=== PATIENT | male | born 1970 | race Caucasian/White ===

== ENCOUNTER 2020-04-30 08:13 | Emergency (ER) | payer BC, SELFPAY ==
[2020-04-30] VITALS (9 sets, daily range): BP systolic 109–126; BP diastolic 68–82; PULSE 60–70; RESP 8–19; TEMP 37.1; O2SAT 96–100
--- NOTE | 2020-04-30 08:17 | ECG_ITS ---
Measurements Intervals [place] Rate: 62 P: 7 IA: 135 QRS: 12 QRSD: 101 T: 43 QT: 387 QTc: 395 Interpretive Statements SINUS RHYTHM EARLY PRECORDIAL R/S TRANSITION BORDERLINE ECG Electronically Signed On 04-30-2020 9:14:19 COMMUNITY DEVELOPMENT COORDINATOR by Jamir Copeland D.O.
[2020-04-30 08:37] LABS: Basophils Percent Auto 0.7 % (0.2-1.2); Eosinophils Absolute Auto 0.1 K/mm3 (0-0.3); Eosinophils Percent Auto 2.2 % (0-4.4); Hematocrit 46.7 % (42.0-52.0); Hemoglobin 15.6 g/dL (14.0-18.0); Immature Granulocyte Absolute 0.01 K/mm3 (0.00-0.031); Immature Granulocyte Percent A 0.2 % (0-0.5); Lymphocytes Absolute Auto 1.52 K/mm3 (0.9-3.2); Lymphocytes Percent Auto 27.7 % (18.3-44.2); Mean Corpuscular HGB Conc 33.4 g/dl (32-36); Mean Corpuscular Hemoglobin 28.6 pg (26-34); Mean Corpuscular Volume 85.5 fl (80-100); Mean Platelet Volume 8.5 fl (7.4-10.4); Monocytes Absolute Auto 0.5 K/mm3 (0.1-0.6); Monocytes Percent Auto 9.1 % (2.6-8.5); Neutrophils Absolute Auto 3.3 K/mm3 (1.3-6.7); Neutrophils Percent Auto 60.1 % (45.5-73.1); Platelet Count Result 274 k/mm3 (150-375); Red Blood Count 5.46 M/mm3 (4.6-6.20); Red Cell Distribution Width 12.4 % (11.5-14.5); White Blood Count 5.5 K/mm3 (4.5-10.0)
--- NOTE | 2020-04-30 08:42 | ED.SYNCOPE ---
HPI - Syncope General Chief Complaint: Syncope Stated Complaint: syncope Time Seen by Provider: 04/30/20 08:20 Source: patient and family Mode of arrival: ambulatory Limitations: no limitations History of Present Illness HPI narrative: THis patient is a healthy 49 year old male who presents for evaluation of a syncopal episode. He states was snowblowing this morning before work. He denies any chest pain, dizziness or shortness of breath while snow blowing. He states his hands were getting cold so he went inside to warm his hands. He reports he was developing pain to his hands and he because nauseated and lightheaded. His was able to catch him so he did not hit his head. He reports he woke up to his . He reports he feels better. He denies cardiac history or history of syncope. Related Data Home Medications Medication Instructions Recorded Confirmed aspirin [Adult Aspirin] 81 mg PO DAILY 04/30/20 cetirizine [Zyrtec] 10 mg PO DAILY 04/30/20 fluticasone propionate [Flonase] 1 spray INTRANASAL DAILY 04/30/20 Allergies Allergy/AdvReac Type Severity Reaction Status Date / Time Penicillins AdvReac Unknown NAUSEA Verified 04/30/20 08:26 Review of Systems Review of Systems: All systems reviewed & are unremarkable except as noted in HPI and below Constitutional: Constitutional: Denies chills and Denies fever(s) Cardiovascular: Cardiovascular: Denies chest pain Respiratory: Respiratory: Denies cough and Denies dyspnea Gastrointestinal: Gastrointestinal: Denies abdominal pain, Reports nausea and Denies vomiting Neurologic: Reports syncope and Denies headache(s) [facility] Past Medical History Medical History (Updated 04/30/20 @ 09:56 by Mary Nuno MD) Patient denies medical problems Surgical History Surgical History (System 01/12/20 @ 09:18 by Tiki William) History of tonsillectomy Family History Family History Father Hypertension Malignant neoplasm of prostate Mother Breast cancer Lupus Social History Social History (System 01/12/20 @ 09:18 by Tiki William) Smoking status: Never smoker Second hand tobacco smoke exposure: No Alcohol intake: current Substance use: never Substance use type: does not use Gender identity (if verbalized by the patient): Male Exam Narrative: Exam Narrative: GENERAL: Well-appearing, well-nourished, and in no acute distress. HEAD: Normocephalic, atraumatic EYES: PERRLA and EOMI, conjunctiva clear without discharge NECK: Supple, without lymphadenopathy or mass RESPIRATORY: No respiratory distress, Airway patent, Respirations non-labored, Clear to auscultation without rales, rhonchi or wheeze HEART: Regular rate and rhythm. No murmur heard. Normal peripheral pulses. ABDOMEN: Soft, nontender, nondistended, normal active bowel sounds. No masses. No rebound or guarding, No organomegaly. EXTREMITIES: No edema, normal strength with full range of motion. SKIN: Warm, dry, normal color without rash NEURO: Alert and oriented x3. CN 2-12 grossly intact. No focal deficits. PSYCH: Normal mood and affect. Course Reevaluation(s) Reevaluation #1: I explained to patient blood work is unremarkable. He feels better. EKG is unchanged and normal. He will follow up with PCP. This is likely vasovagal episode. No sob, chest pain or palpitations . PE unlikely. Date: 04/30/20 Time: 09:52 Consultations Consultation #1: I discussed case with Dr. Li and he agrees to follow up with patient regarding today's ER visit. Date: 04/30/20 Time: 09:53 Vital Signs Vital signs: Vital Signs Pulse Rate 68 04/30/20 08:20 Respiratory Rate 16 04/30/20 08:20 Blood Pressure 117/77 04/30/20 08:20 Pulse Oximetry 100 04/30/20 08:20 Temperature 98.7 F 04/30/20 08:30 Pulse Rate 70 04/30/20 10:01 Respiratory Rate 15 04/30/20 10:01 Blood Pressure 117/78
[2020-04-30 08:49] LABS: Anion Gap 5 mmol/L (8-16); Blood Urea Nitrogen 14 mg/dL (9-20); Calcium 9.2 mg/dL (8.4-10.2); Carbon Dioxide 30 mmol/L (22-30); Chloride 105 mmol/L (98-107); Estimated CRCL calculation 82 ml/min; Estimated Glomerular Filt Rate > 60; Glucose 94 mg/dL (75-110); Magnesium 1.9 mg/dL (1.6-2.3); Potassium 4.2 mmol/L (3.4-5.0); Sodium 140 mmol/L (137-145)
[2020-04-30 08:51] LABS: INR 0.9; Prothrombin Time 12.6 Seconds (11.1-14.7)
[2020-04-30 09:01] LABS: Troponin I < 0.012 ng/mL (0.000-0.034)
[2020-04-30 09:01] LABS: Add Urine Microscopic? YES; Appearance Urine Clear (Clear); Bilirubin Urine Negative (Negative); Blood Urine Negative (Negative); Color Urine Yellow (Yellow); Glucose Urine UA Negative (Negative); Ketones Urine Negative (Negative); Leukocyte Esterase Ur Negative LEU/UL (Negative); Mucus Urine Few /lpf; Nitrate Urine Negative (Negative); Protein Urine 1+ mg/dL (Negative); Specific Grav Ur 1.024 (1.001-1.035); Urobilinogen Urine Negative mg/dL (<2.0); WBC Urine 0-3 /hpf
== END 2020-04-30 10:08 | disposition home or self-care (01) ==
PROVIDERS: Emergency Provider General Practice; PCP Family Medicine
DX: R55 Syncope and collapse (principal); R94.31 Abnormal electrocardiogram [ECG] [EKG]
CPT/HCPCS: 36415; 80048; 81001; 83735; 84484; 85025; 85610; 85730; 93005; 99284

== ENCOUNTER → 2020-05-14 06:52 | Outpatient (CLI) | payer BC, SELFPAY ==
[2020-05-14 19:08] LABS: SARS-CoV-2 RNA PCR Negative
== END ==
PROVIDERS: PCP Family Medicine; Visit Provider Family Medicine
DX: Z20.822 Contact with and (suspected) exposure to COVID-19 (principal)
CPT/HCPCS: C9803; U0003; U0005

== ENCOUNTER 2020-05-26 09:23 | Observation (INO) | payer BC, SELFPAY ==
[2020-05-26] VITALS (7 sets, daily range): BP systolic 103–120; BP diastolic 58–75; PULSE 55–61; RESP 12–20; TEMP 36.3–36.6; O2SAT 97–100; BMI 28.8
--- NOTE | ~2020-05-26 | MR_ITS ---
EXAMINATION: MR MRCP wo/w con/w 3D wo ind DATE: 05/27/2020 10:47 INDICATION: Hepatitis. Right upper quadrant abdominal pain. TECHNIQUE: Magnetic resonance imaging (MRI) of the abdomen was performed without and with 18 mL Multi Krystyna intravenous contrast. Sequences included coronal T2-weighted FS FSE, coronal T2-weighted FSE, a xial T1-weighted LAVA, coronal FS FIESTA, axial dual-echo T1-weighted SPGR, coronal lava-FLEX, sagitt al T2-weighted FSE, axial T2-weighted FSE, and axial DWI. Thick-slab T2-weighted FSE images were obta ined for magnetic resonance cholangiopancreatography (MRCP). Maximum intensity projection 3-D reconst ructions of the volumetric data were created by the technologist. Postcontrast sequences included cor onal LAVA-flex and time course of axial T1-weighted LAVA. COMPARISON: Ultrasound 05/26/2020 FINDINGS: ABDOMEN MRI: There are cysts in the liver measuring up to 6 mm. There are gallstones in the gallbladd er, which is normal in size. The spleen, pancreas, adrenal glands, and left kidney are normal. There is a 4 mm cyst in right kidney. There are no dilated loops of bowel. There are no pathologically enla rged lymph nodes. There is no free intraperitoneal fluid. ABDOMEN MRCP: The common duct is normal and measures 6 mm. No choledocholithiasis. IMPRESSION: 1. Cholelithiasis. No evidence of acute cholecystitis. Reviewed, dictated and finalized at location A.
--- NOTE | ~2020-05-26 | US_ITS ---
EXAMINATION: US abdomen limited DATE: 05/26/2020 10:29 INDICATION: Epigastric and right upper quadrant abdominal pain. TECHNIQUE: Multiple grayscale and Doppler ultrasound images of the abdomen were obtained. COMPARISON: CT abdomen and pelvis 06/11/2010 FINDINGS: The visualized portions of the head and body of the pancreas are normal. The liver is mc l without focal lesion. No liver surface nodularity. There is normal flow in main portal vein. The ga llstones in the gallbladder, which is normal in size. No gallbladder wall thickening or sonographic M urphy sign. The common duct is normal and measures 6 mm. IMPRESSION: 1. Cholelithiasis. No evidence of acute cholecystitis. Reviewed, dictated and finalized at location A.
[2020-05-26 09:45] LABS: Basophils Percent Auto 0.8 % (0.2-1.2); Eosinophils Absolute Auto 0.1 K/mm3 (0-0.3); Eosinophils Percent Auto 1.4 % (0-4.4); Hematocrit 44.4 % (42.0-52.0); Hemoglobin 14.4 g/dL (14.0-18.0); Immature Granulocyte Absolute 0.02 K/mm3 (0.00-0.031); Immature Granulocyte Percent A 0.4 % (0-0.5); Lymphocytes Percent Auto 15.8 % (18.3-44.2); Mean Corpuscular HGB Conc 32.4 g/dl (32-36); Mean Corpuscular Hemoglobin 27.9 pg (26-34); Mean Platelet Volume 8.8 fl (7.4-10.4); Monocytes Absolute Auto 0.5 K/mm3 (0.1-0.6); Monocytes Percent Auto 8.9 % (2.6-8.5); Neutrophils Absolute Auto 3.7 K/mm3 (1.3-6.7); Neutrophils Percent Auto 72.7 % (45.5-73.1); Platelet Count Result 285 k/mm3 (150-375); Red Blood Count 5.16 M/mm3 (4.6-6.20); Red Cell Distribution Width 12.6 % (11.5-14.5); White Blood Count 5.1 K/mm3 (4.5-10.0)
[2020-05-26 09:58] LABS: Albumin Level 4.3 g/dL (3.5-5.1); Alkaline Phosphatase 95 U/L (38-126); Anion Gap 5 mmol/L (8-16); Bilirubin,Total 2.3 mg/dL (0.2-1.3); Blood Urea Nitrogen 11 mg/dL (9-20); Calcium 9.3 mg/dL (8.4-10.2); Carbon Dioxide 31 mmol/L (22-30); Chloride 104 mmol/L (98-107); Estimated CRCL calculation 91 ml/min; Estimated Glomerular Filt Rate > 60; Glucose 103 mg/dL (75-110); Lipase 146 U/L (23-300); Potassium 4.1 mmol/L (3.4-5.0); Sodium 140 mmol/L (137-145)
[2020-05-26 10:01] LABS: Add Urine Microscopic? YES; Appearance Urine Clear (Clear); Bacteria Urine Trace /hpf; Bilirubin Urine Negative (Negative); Blood Urine Negative (Negative); Color Urine Yellow (Yellow); Glucose Urine UA Negative (Negative); Ketones Urine Negative (Negative); Leukocyte Esterase Ur Negative LEU/UL (Negative); Nitrate Urine Negative (Negative); Protein Urine 1+ mg/dL (Negative); RBC Urine 0-2 /hpf (0-2); Specific Grav Ur 1.019 (1.001-1.035); WBC Urine 0-3 /hpf
[2020-05-26] MEDS: ONDANSETRON INJ 4 MG/2 ML VIAL IV PUSH (10:03)
[2020-05-26] MEDS: MORPHINE SULFATE (*CRX) 4 MG/ML INJ IV PUSH (10:03)
[2020-05-26 10:04] LABS: Alanine Aminotransferase 1043 U/L (4-50); Aspartate Amino Transferase 1197 U/L (17-59)
[2020-05-26] MEDS: SODIUM CHLORIDE 0.9% IV 1,000 ML 150 ML IV CONT (10:04)
[2020-05-26] MEDS: PANTOPRAZOLE SODIUM IV 40 MG VIAL IV PUSH (10:04)
--- NOTE | 2020-05-26 12:21 | ED.ABDPAIN ---
HPI - Abdominal Pain General Chief Complaint: Abdominal Pain Stated Complaint: abdominal pain Time Seen by Provider: 05/26/20 09:35 Source: patient Mode of arrival: ambulatory Limitations: no limitations History of Present Illness HPI narrative: 49-year-old with no major medical problems here with complaints of mid epigastric pain since yesterday got worse this morning.. He denies any fever or chills no history of nausea or vomiting. No recent travel. Denies alcohol use. MD elicited complaint: abdominal pain Pertinent past history: none Onset (ago): day(s) (1) Pain Consistency: constant Location: epigastric Severity: moderate Quality: aching Radiation: epigastric Migration to: RUQ Exacerbating factors: nothing Relieving factors: nothing Associated symptoms: denies other symptoms Related Data Home Medications Medication Instructions Recorded Confirmed aspirin [Adult Aspirin] 81 mg PO DAILY 04/30/20 05/01/20 cetirizine [Zyrtec] 10 mg PO DAILY 04/30/20 05/01/20 fluticasone propionate [Flonase] 1 spray INTRANASAL DAILY 04/30/20 05/01/20 Allergies Allergy/AdvReac Type Severity Reaction Status Date / Time Penicillins AdvReac Unknown NAUSEA Verified 05/26/20 09:41 Review of Systems Review of Systems: All systems reviewed & are unremarkable except as noted in HPI and below Constitutional: Constitutional: Reports no additional constitutional complaints Eyes: Eyes: Reports no additional eye complaints ENT: Reports system reviewed and no additional complaints, except as documented Cardiovascular: Cardiovascular: Reports no additional cardiovascular complaints Respiratory: Respiratory: Reports no additional respiratory complaints Gastrointestinal: Gastrointestinal: Reports as per HPI Musculoskeletal: Musculoskeletal: Reports no additional musculoskeletal complaints Neurologic: Reports system reviewed and no additional complaints, except as documented [facility] Past Medical History Medical History Patient denies medical problems Surgical History Surgical History History of tonsillectomy Family History Family History Father Hypertension Malignant neoplasm of prostate Mother Breast cancer Lupus Father Family history of diabetes mellitus in first degree relative Hypertension Malignant neoplasm of prostate Mother Family history of malignant neoplasm of breast in first degree relative Family history of lupus erythematosus Father Family history of diabetes mellitus in first degree relative Other Family history of allergic disorder Social History Social History Smoking status: Never smoker Second hand tobacco smoke exposure: No Alcohol intake: current Substance use: never Substance use type: does not use Gender identity (if verbalized by the patient): Male Exam Narrative: Exam Narrative: GENERAL: Well-appearing, well-nourished, and in no acute distress,anxious HEAD: Normocephalic, atraumatic. EYES: PERRLA and EOMI.. NECK: Supple. CHEST: Clear to auscultation. No respiratory distress. HEART: Regular rate and rhythm. No murmur heard. Normal peripheral pulses. ABDOMEN: Soft, tender in the epigastric and in the RT upper quadrant, nondistended, normal active bowel sounds. EXTREMITIES: Normal range of motion. No edema. SKIN: Warm, dry, no rash. NEURO: No focal deficits. Alert and oriented x3. PSYCH: Normal mood and affect. Course Course Emergency Course: Pain has much subsided after morphine I did give him some Zofran for nausea. Meanwhile obtain his lab work which shows elevated transaminases. Gallbladder ultrasound showed cholelithiasis but no evidence of cholecystitis. I discussed with Dr. Elliott recommended MRCP in the morning. Will admit to Dr. Wolff who accep
--- NOTE | 2020-05-26 13:00 | ADMGEN ---
This patient, Shadi Croft, was admitted to Medical Room 340-01. Patient/family oriented to hospital policies and general routines including ID bracelet, bed and alarms, visiting hours, pain management, procedures, bathroom and other care routines, personal items, smoking policy, room service/diet, and visiting hours. Information on how to activate the Rapid Response Team has been discussed. Patient/Family are encouraged to report perceived risks to care and to ask questions if they do not understand what they are told or what they should do.
[2020-05-26 13:04] LABS: Hepatitis B Surface Antigen Negative (Negative)
[2020-05-26 13:10] LABS: HAV RESULT Negative (Negative); Hepatitis B Core IgM Result Negative (Negative)
[2020-05-26] MEDS: SODIUM CHLORIDE 0.9% IV 1,000 ML 125 ML IV CONT ×2 (13:11→21:21)
[2020-05-26 13:22] LABS: Hepatitis C Virus Antibody Negative (Negative)
--- NOTE | 2020-05-26 15:29 | PM.IMHP ---
H&P: HPI History of Present Illness Date/Time: 05/26/20 15:29 Chief Complaint: epigastric abdominal pain Narrative: 49-year-old gentleman was in his usual state good state of health until several weeks ago when he had an episode of aching epigastric fullness after eating supper. It never worsened and by morning had completely resolved. He had no issues until May 25. He was eating and drinking a relatively healthy diet trying to lose some weight but had not had any recent rapid weight gain or loss. After the evening male May 25 he had epigastric fullness with an aching sensation. It did not radiate. It was slightly to the right of midline. A gradually intensified and kept him awake most of the night. By morning it was 7/10 intensity. He decided to proceed to the emergency room by car. In the emergency department he received 1 injection intravenously morphine 4 mg. His pain resolved and has not recurred. He denied change in urine or stool. Denied nausea or vomiting. Denied melena or hematochezia or hematuria. He denied fevers chills or sweats. Review of Systems Review of Systems: All systems reviewed & are unremarkable except as noted in HPI and below PMFSH Past Medical History Medical History Patient denies medical problems Surgical History Surgical History History of tonsillectomy Family History Family History Father Malignant neoplasm of prostate Hypertension Heart failure Mother Lupus Breast cancer Father Malignant neoplasm of prostate Family history of diabetes mellitus in first degree relative Hypertension Mother Family history of malignant neoplasm of breast in first degree relative Family history of lupus erythematosus Father Family history of diabetes mellitus in first degree relative Other Family history of allergic disorder Social History Social History Smoking status: Never smoker Second hand tobacco smoke exposure: No Alcohol intake: current Drinks per week: 1 Substance use: never Substance use type: does not use Gender identity (if verbalized by the patient): Male Spiritual care concerns: No Meds Home Medications and Allergies Home Medications Medication Instructions Recorded Confirmed Type aspirin [Adult Aspirin] 81 mg PO DAILY 04/30/20 05/26/20 History cetirizine [Zyrtec] 10 mg PO DAILY 04/30/20 05/26/20 History fluticasone propionate [Flonase] 1 spray INTRANASAL DAILY 04/30/20 05/26/20 History Allergies Allergy/AdvReac Type Severity Reaction Status Date / Time No Known Allergies Allergy Verified 05/26/20 13:34 Vital Signs Vital Signs - 24 hr 05/26/20 09:28 05/26/20 10:06 05/26/20 11:27 Temperature 97.6 F Pulse Rate 61 60 57 L Respiratory Rate 18 20 20 Blood Pressure 120/75 116/68 107/59 L Pulse Oximetry 97 99 98 05/26/20 12:11 05/26/20 12:55 05/26/20 13:45 Temperature 97.4 F L Pulse Rate 56 L 55 L 55 L Respiratory Rate 20 20 12 Blood Pressure 109/60 109/60 110/72 Pulse Oximetry 100 99 100 Exam Narrative: Exam Narrative: HEENT: EOMI, PERRL, sclerae nonicteric, pharyngeal mucosa pink and intact NECK: No JVD, adenopathy, or thyromegaly CHEST: Clear to auscultation. Normal effort. HEART: NL S1/S2, regular, no murmur ABDOMEN: BS+, soft, TENDER EPIGASTRIUM, no mass, no bruits EXTREMITIES: No cyanosis, edema, or clubbing NEUROLOGIC: CN intact and symmetric to inspection. MUSCULOSKELETAL: Tone and strength symmetric. PSYCH: Alert. Oriented to person, place, and time. H&P: Results Labs Labs: Short CBC 05/26/20 Range/Units 09:39 WBC 5.1 (4.5-10.0) K/mm3 Hgb 14.4 (14.0-18.0) g/dL Hct 44.4 (42.0-52.0) % Plt Count 285 (150-375) k/mm3 [facility] 05/26/20 09:39 Sodium 140 Pota
[2020-05-27 05:03] VITALS: BP 123/71; PULSE 71; RESP 18; TEMP 36.4; O2SAT 99
[2020-05-27 05:11] LABS: Hematocrit 39.9 % (42.0-52.0); Mean Corpuscular HGB Conc 32.6 g/dl (32-36); Mean Corpuscular Volume 85.8 fl (80-100); Platelet Count Result 238 k/mm3 (150-375); Red Blood Count 4.65 M/mm3 (4.6-6.20); Red Cell Distribution Width 12.8 % (11.5-14.5)
[2020-05-27] MEDS: SODIUM CHLORIDE 0.9% IV 1,000 ML 125 ML IV CONT (05:15)
[2020-05-27 05:31] LABS: Albumin Level 3.2 g/dL (3.5-5.1); Alkaline Phosphatase 100 U/L (38-126); Anion Gap 1 mmol/L (8-16); Aspartate Amino Transferase 708 U/L (17-59); Bilirubin,Total 1.9 mg/dL (0.2-1.3); Blood Urea Nitrogen 6 mg/dL (9-20); Calcium 8.4 mg/dL (8.4-10.2); Carbon Dioxide 29 mmol/L (22-30); Chloride 109 mmol/L (98-107); Estimated CRCL calculation 102 ml/min; Estimated Glomerular Filt Rate > 60; Glucose 94 mg/dL (75-110); Sodium 139 mmol/L (137-145)
[2020-05-27 05:36] LABS: Alanine Aminotransferase 1143 U/L (4-50)
[2020-05-27 09:25] VITALS: O2SAT 97
--- NOTE | 2020-05-27 12:43 | PM.DS ---
DS: Admitting Diagnosis Admitting Diagnosis Admitting Diagnosis: Abdominal pain, epigastric, abnormal liver enzymes DS: Discharge Diagnosis Discharge Diagnosis (1) Cholelithiasis: Code(s): K80.20 - Calculus of gallbladder without cholecystitis without obstruction Status: Acute Assessment and Plan: suspect choledocholithiasis with possible passed stone. differential diagnosis includes acute viral hepatitis, cholecystitis, hepatic vein thrombosis, although hepatitis panel negative. MRCP negative for cholecystitis. Patient significantly improved, clinically. Labs have improved as well. No n/v, no RUQ abdominal pain. Discussed with Dr. Lacy who is okay for discharge with outpatient follow up CMP in 1 week advance to low fat diet F/u with PCP F/u with Dr. Lacy as outpatient Will provide General Surgery consultation Discharge today if tolerating low fat diet (2) Abdominal pain, epigastric: Code(s): R10.13 - Epigastric pain Status: Acute Assessment and Plan: Likely secondary to cholelithiasis and possibly passed stone please see above a/p (3) Abnormal liver enzymes: Code(s): R74.8 - Abnormal levels of other serum enzymes Status: Acute Assessment and Plan: Trending down. Likely due to above. Hepatitis panel negative Please see above a/p DS: Summary Hospital Course Reason for hospitalization: Cholelithiasis, elevated liver enzymes/bilirubin Hospital Course: Date of arrival: 05/26/20 Date of discharge: 05/27/20 Patient is a 49-year-old gentleman was in his usual good state of health until several weeks prior to arrival when he had an episode of aching epigastric fullness after eating supper. On 05/25, he was eating his evening meal and had epigastric fullness with aching sensation slight right of midline, gradually intensifying, keeping him awake most of the night. By morning of 05/26, it was 7/10 intensity, prompting hime to proceed to the ER for further evaluation. While in the ED, pain resolved with morphine 4 mg IV once. CMP revealed elevated total bilirubin at 2.3, AST of 1197, and ALT of 1043 with normal lipase. Abdominal US showed cholelithiasis without evidence of acute cholecystitis. Patient admitted under this setting. Please see H&P for further details. Patient was admitted to the hospitalist service for further management/treatment. Dr. Lacy (GI) was consulted for further input. Patient remained pain free and 05/27 labs showed improving LFTs and bilirubin. MRCP performed that day confirmed findings of cholelithiasis without evidence of acute cholecystitis with normal common bile duct measuring 6 mm and no choledocholithiasis. Patient tolerated a low fat diet on 05/27. Hepatitis panel was negative. Dr. 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 Plan was for him to follow up with his PCP for further management and to confirm whether or not he should fulfill the General Surgery referral for possible cholecystectomy. He was to obtain lab work in 1 week to ensure LFTs and bilirubin were trending down/normal. Patient and family agreeable and comfortable with plan for discharge. Patient hemodynamically stable and in improved condition for discharge on 05/27 Status at Discharge Overall status at discharge: patient is progressing back to baseline Time Spent with Patient Time attestation: Total time spent providing and/or coordinating discharge services: Time spent: Greater than 30 minutes Exam Narrative: Exam Narrative: General: Patient sitting upright in bed in no acute distress. Family in room at time of visit. Patient finishing lunch HEENT: Normocephalic, EOMI, oral mu
--- NOTE | 2020-05-27 13:22 | WPDGICN ---
Assessment and Plan Assessment and plan (1) Cholelithiasis: Code(s): K80.20 - Calculus of gallbladder without cholecystitis without obstruction Status: Acute Assessment and Plan: pain resolved and he is doing much better, tolerating diet recommend to see surgery as outpatient, most likely symptoms related to cholelithiasis ( works here) (2) Abnormal liver enzymes: Code(s): R74.8 - Abnormal levels of other serum enzymes Status: Acute Assessment and Plan: probably GB related, most likely he passed stone (MRCP reviewed and normal bile duct) hepatitis panel negative, denies excessive alcohol (3) Abdominal pain, epigastric: Code(s): R10.13 - Epigastric pain Status: Acute Assessment and Plan: resolved now, follow-up office as needed (4) Gallbladder colic: Code(s): K80.20 - Calculus of gallbladder without cholecystitis without obstruction Status: Acute Assessment and Plan: most likely diagnosis, will see surgery as outpatient he is doing much better now and would like to go home GI Consult Note Consult date/time: 05/27/20 13:22 Reason for consult: epigastric pain and elevated liver enzymes HPI: Shadi Croft is a 49 year old male here with new onset of severe pain in epigastric area after he had large dinner. ER records reviewed, ultrasound showed cholelithiasis, no evidence of acute cholecystitis. Also had elevated liver enzymes with bili 2.3, transaminases 1000's (today trending down), normal lipase and pain is gone, also tolerated diet and he is feeling like going home later today. I ordered MRCP that confirmed cholelithiasis without cholecystitis, normal bile duct and pancreas. Hepatitis panel negative, only social drinker. Had EGD and colonoscopy years ago for upset stomach . He says that months ago had similar pain but only mild, also after eating large meal. Review of Systems Constitutional: Constitutional: Denies headache(s) and Denies weakness Eyes: Eyes: Denies blurry vision ENT: Reports Normal hearing present, Denies headache(s) and Denies neck pain Cardiovascular: Cardiovascular: Denies chest pain and Denies dyspnea Respiratory: Respiratory: Denies dyspnea Gastrointestinal: Gastrointestinal: Reports no additional gastrointestinal complaints Genitourinary: Genitourinary: Denies dysuria Musculoskeletal: Musculoskeletal: Denies neck pain Integumentary/Breasts: Skin/Breast: Denies dry skin Neurologic: Reports Normal hearing present, Denies headache(s) and Denies weakness Psychiatric: Psychiatric: Denies anxiety Endocrine: Endocrine: Denies change in body appearance Hematologic/Lymphatic: Hematologic/Lymphatic: Denies easy bleeding Allergic/Immunologic: Allergic/Immunologic: Denies urticaria PMFSH Past Medical History Medical History Patient denies medical problems Surgical History Surgical History History of tonsillectomy Family History Family History Father Malignant neoplasm of prostate Hypertension Heart failure Mother Lupus Breast cancer Father Malignant neoplasm of prostate Family history of diabetes mellitus in first degree relative Hypertension Mother Family history of malignant neoplasm of breast in first degree relative Family history of lupus erythematosus Father Family history of diabetes mellitus in first degree relative Other Family history of allergic disorder Social History Social History Smoking status: Never smoker Second hand tobacco smoke exposure: No Alcohol intake: current Drinks per week: 1 Substance use: never Substance use type: does not use Gender identity (if verbalized by the patient): Male Spiritual care concerns: No Meds Home Medicatio
[2020-05-27 14:00] VITALS: BP 119/75; PULSE 59; RESP 16; TEMP 36.9; O2SAT 99
== END 2020-05-27 14:55 | disposition home or self-care (01) ==
LOC: ANHED 12:21 → ANH3MED 12:56
PROVIDERS: Admitting Provider Internal Medicine; Emergency Provider Family Medicine; PCP Family Medicine; Visit Provider Internal Medicine
DX: K80.20 Calculus of gallbladder without cholecystitis without obstruction (principal); R10.13 Epigastric pain; R74.8 Abnormal levels of other serum enzymes
CPT/HCPCS: 36415; 74183; 76376; 76705; 80053; 80074; 81001; 83690; 85025; 85027; 96361; 96374; 96375; 99285; A9577; C9113; G0378; J2270; J2405; J7030

== ENCOUNTER 2020-05-31 08:28 | Outpatient (CLI) | payer BC, SELFPAY ==
[2020-05-31 17:21] LABS: Alanine Aminotransferase 507 U/L (4-50); Albumin Level 4.5 g/dL (3.5-5.1); Alkaline Phosphatase 84 U/L (38-126); Anion Gap 7 mmol/L (8-16); Aspartate Amino Transferase 95 U/L (17-59); Bilirubin,Total 1.4 mg/dL (0.2-1.3); Blood Urea Nitrogen 14 mg/dL (9-20); Calcium 10.5 mg/dL (8.4-10.2); Carbon Dioxide 32 mmol/L (22-30); Chloride 103 mmol/L (98-107); Estimated Glomerular Filt Rate > 60; Glucose 91 mg/dL (75-110); Potassium 4.5 mmol/L (3.4-5.0); Sodium 142 mmol/L (137-145)
== END 2020-05-31 08:29 | disposition home or self-care (01) ==
PROVIDERS: PCP Family Medicine; Visit Provider Physician Assistant
DX: K80.20 Calculus of gallbladder without cholecystitis without obstruction (principal); R74.8 Abnormal levels of other serum enzymes
CPT/HCPCS: 36415; 80053

== ENCOUNTER → 2020-06-04 07:03 | Outpatient (CLI) | payer BC, SELFPAY ==
[2020-06-05 02:01] LABS: SARS-CoV-2 RNA PCR Negative
== END ==
PROVIDERS: PCP Family Medicine; Visit Provider Family Medicine
DX: Z20.822 Contact with and (suspected) exposure to COVID-19 (principal)
CPT/HCPCS: C9803; U0003; U0005

== ENCOUNTER → 2020-06-25 00:11 | Outpatient (CLI) | payer BC, SELFPAY ==
[2020-06-25 20:44] LABS: SARS-CoV-2 RNA PCR Negative
== END ==
PROVIDERS: PCP Family Medicine; Visit Provider Surgery
DX: Z01.812 Encounter for preprocedural laboratory examination (principal); Z20.822 Contact with and (suspected) exposure to COVID-19
CPT/HCPCS: C9803; U0003; U0005

== ENCOUNTER 2020-06-25 09:07 | Outpatient (CLI) | payer BC, SELFPAY ==
[2020-06-25 10:04] LABS: Alanine Aminotransferase 32 U/L (4-50); Albumin Level 4.7 g/dL (3.5-5.1); Alkaline Phosphatase 52 U/L (38-126); Amylase 124 U/L (30-110); Aspartate Amino Transferase 29 U/L (17-59); Bilirubin,Total 1.7 mg/dL (0.2-1.3); Lipase 153 U/L (23-300)
== END 2020-06-25 09:08 | disposition home or self-care (01) ==
LOC: ANHSURGERY 09:12
PROVIDERS: PCP Family Medicine; Visit Provider Surgery
DX: Z01.812 Encounter for preprocedural laboratory examination (principal); K80.10 Calculus of gallbladder with chronic cholecystitis without obstruction
CPT/HCPCS: 36415; 80076; 82150; 83690; 86850; 86900; 86901

== ENCOUNTER 2020-06-28 01:05 | Day surgery (SDC) | payer BC, SELFPAY ==
[2020-06-19 09:47] VITALS: BMI 27.9
[2020-06-28] VITALS (8 sets, daily range): BP systolic 113–147; BP diastolic 63–81; PULSE 49–64; RESP 12–16; TEMP 36.3–36.5; O2SAT 97–100
--- NOTE | ~2020-06-28 | XR_ITS ---
EXAMINATION: XR cholangiogram surg 1st inj DATE: 06/28/2020 15:02 INDICATION: Intraoperative cholangiogram TECHNIQUE: 58 fluoroscopic images of the right upper quadrant were obtained during intraoperative cho langiography performed by the surgeon. I was not present in the operating room. Fluoroscopy exposure time was 18.5 seconds. COMPARISON: MRCP, 05/27/2020 FINDINGS: No stones or stricture identified in the common bile duct. Please refer to procedure note f or full details. IMPRESSION: 1. No stones or stricture identified in the common bile duct. This was communicated directly to Dr. Sunny damon by telephone in the operating room at 1300 hours on 06/28/2020. Reviewed, dictated and finalized at location B. IMPRESSION: 1. No stones or stricture identified in the common bile duct. This was communic ated directly to Dr. Stein by telephone in the operating room at 1300 hours on .
[2020-06-28] MEDS: LACTATED RINGERS 1,000 ML 30 ML IV CONT ×2 (11:20→15:29)
[2020-06-28] MEDS: ACETAMINOPHEN 500 MG TABLET 1000 MG PO (11:29)
[2020-06-28] MEDS: KETOROLAC 15 MG/ML VIAL (*BKC) IV PUSH (11:31)
--- NOTE | 2020-06-28 13:14 | WPDANESEPPF ---
Anes - Initial Pre Proc Eval Procedure: Operation Date: 06/28/20 13:00 Proposed Procedures p Laparoscopic Cholecystectomy with Intraoperative Cholangiogram - Chiki Stein MD Date/Time: 06/28/20 13:14 Surgeon: Chiki Stein MD Pre Op Diagnosis: chronic cholecystitis Patient Data Age: 49 Gender: M Height: 5 ft 10 in Weight: 90.1 kg Last Vital Signs Temp 36.5 C 06/28/20 11:35 Pulse 64 06/28/20 11:35 Resp 16 06/28/20 11:35 BP 126/74 06/28/20 11:35 Pulse Ox 99 06/28/20 11:35 Allergies Allergy/AdvReac Type Severity Reaction Status Date / Time No Known Allergies Allergy Verified 06/19/20 09:46 Home Medications Medication Instructions Recorded Confirmed Type Zyrtec 10 mg PO DAILY 04/30/20 06/28/20 History aspirin 81 mg PO DAILY 04/30/20 06/28/20 History fluticasone propionate 1 spray INTRANASAL DAILY 04/30/20 06/28/20 History dicyclomine 10 mg capsule 10 mg PO BID PRN #30 cap 05/27/20 06/28/20 Rx omeprazole 10 mg capsule,delayed 10 mg PO DAILY 06/03/20 06/28/20 History release Patient hx anesthesia problems: none Family hx anesthesia problems: none [facility] Past Medical History Medical History Gallbladder colic Patient denies medical problems Surgical History Surgical History H/O inguinal hernia repair repaired as an H/O removal of cyst testicular cyst as a child History of tonsillectomy Family History Family History Father Malignant neoplasm of prostate Hypertension Heart failure Mother Lupus Breast cancer Father Malignant neoplasm of prostate Family history of diabetes mellitus in first degree relative Hypertension Mother Family history of malignant neoplasm of breast in first degree relative Family history of lupus erythematosus Father Family history of diabetes mellitus in first degree relative Other Family history of allergic disorder Social History Social History Smoking status: Never smoker Second hand tobacco smoke exposure: No Alcohol intake: current Drinks per week: 1 Substance use: never Substance use type: does not use Living arrangements: with family Gender identity (if verbalized by the patient): Male Spiritual care concerns: No Anes - Eval Final PreProcedure Day of Procedure 06/28/20 13:14 Patient weight: overweight Heart: regular rate and rhythm Lungs: clear to auscultation Airway: Mallampati scale class II Neurological: alert and oriented Last oral intake: >/= 8 hours ASA classification: II Emergent: no Anesthetic plan: proceed Anesthesia type and monitoring: general ETT and standard monitoring Informed Consent: The patient's anesthetic plan and its attendant risks and benefits were discussed with the patient/family/POA. Questions were solicited and answers provided to the satisfaction of the patient/family/POA.
--- NOTE | 2020-06-28 14:12 | WPDHPUPDATE1 ---
History and Physical Update Update Date/Time: 06/28/20 14:12 History and Physical has been reviewed, including an updated exam of the patient. There are NO changes in the patient's condition. Risks, benefits, and alternatives have been discussed and questions answered. Patient agrees to proceed with procedure.
[2020-06-28] MEDS: ceFAZolin 2 GM/D5W 50 ML 2 GM/50 ML BAG IVPB (14:18)
[2020-06-28] MEDS: BUPIVACAINE/EPINEPHRINE 0.5% 30 ML VIAL INFILTRATE (14:50)
--- NOTE | 2020-06-28 15:40 | P.OP_ITS ---
Procedure Note - Detailed Date of procedure: 06/28/20 Pre-op diagnosis: chronic cholecystitis Chronic cholecystitis, cholelithiasis; abnormal LFTs Post-op diagnosis: same Procedure performed: Laparoscopic cholecystectomy with intraoperative cholangiogram. Description of procedure: The patient was taken to surgery and induced into general anesthesia. The abdomen was prepped and draped. Trocars were placed in the usual fashion using 0.5% Marcaine with epinephrine and applied Medical optical trocars. A 5 millimeter camera was used. The gallbladder was decompressed with a laparoscopic aspirator. The cholecystotomy was closed with a Vicryl endo-loop. The infundibulum of the gallbladder was exposed. It was retracted anterosuperiorly. We exposed the cholecystohepatic triangle and dissected out the cystic duct and cystic artery.The gallbladder was dissected off the liver at its lower 3rd. Critical view was achieved. The cystic artery was securely clipped and divided. Cystic duct was dissected through most of its length. The cystic duct was clipped at the distal gallbladder. A small incision was made in the upper cystic duct with cystic duct scissors. The cholangiogram catheter was passed into the cystic duct. We then brought the C-arm fluoroscopy into the field. Intraoperative cholangiograms were done with C-arm fluoroscopy. This showed a normal cholangiogram with no evidence of common bile duct filling defects. There was prompt duodenal filling and no evidence of common bile duct injury. The cholangiogram catheter was removed from the cystic duct. The cystic duct was then securely clipped and divided. The gallbladder was then dissected free of its peritoneal attachments to the liver. Once completely freed, it was placed in an Endo-Catch bag and retrieved through the 10 11 epigastric trocar. The epigastric trocar was then replaced. We reviewed the right upper quadrant and gallbladder fossa. It was irrigated and suctioned. Cautery was used for hemostasis. All looked good with no evidence of bleeding or bile leakage. We then evacuated CO2 and removed the trocar sleeves. The fascia at the epigastric trocar site was closed with 0 Vicryl suture. All skin wounds were closed with subcuticular 4 O Monocryl skin suture. The wounds were dressed with Exofin surgical adhesive. The patient transferred to recovery in good condition. Sponge and needle counts were correct x2. Anesthesia: GETA and local (0.5% Marcaine with epinephrine) Surgeon: Chiki Stein MD Toe Closing Machine Tender: Gisel FAY Estimated blood loss (mL): 5 Drains: No Packing: No Pathology: yes (Gallbladder) Complications: None Condition: stable Disposition: PACU Findings: Mild chronic inflammation was noted. Multiple stones in the gallbladder, 1 of which was quite large. Intraoperative cholangiogram was negative. No biliary ductal dilatation or liver abnormalities were noted.
[2020-06-28] MEDS: oxyCODONE HCL (*CRX) 5 MG TAB IR PO (16:49)
== END 2020-06-28 17:00 | disposition home or self-care (01) ==
PROVIDERS: PCP Family Medicine; Visit Provider Surgery
PROC: 0FT44ZZ Resection of Gallbladder, Percutaneous Endoscopic Approach (ICD-10-PCS; CPT 47562; principal; 2020-06-28 13:00)
DX: K80.10 Calculus of gallbladder with chronic cholecystitis without obstruction (principal); R94.5 Abnormal results of liver function studies; Z79.82 Long term (current) use of aspirin
CPT/HCPCS: 47563; 74300; 88304; A9270; C1713; J0690; J1100; J1170; J1885; J2250; J2405; J2704; J2710; J3010; J7120; Q9966

== ENCOUNTER 2020-07-24 15:12 | Outpatient (CLI) | payer BC, SELFPAY ==
[2020-07-24 19:56] LABS: Hepatitis B Surface Antigen Negative (Negative)
== END 2020-07-24 15:13 | disposition home or self-care (01) ==
PROVIDERS: PCP Family Medicine
DX: Z11.59 Encounter for screening for other viral diseases (principal)
CPT/HCPCS: 36415; 87340

== ENCOUNTER 2020-08-02 07:55 | Outpatient (CLI) | payer BC, SELFPAY ==
[2020-08-02 20:23] LABS: Hepatitis B Surface Anti Res Positive
== END 2020-08-02 07:56 | disposition home or self-care (01) ==
LOC: ANHAUDASC 07:57 → ANHASCLAB 08:12
PROVIDERS: PCP Family Medicine
DX: Z11.59 Encounter for screening for other viral diseases (principal)
CPT/HCPCS: 36415; 86706

== ENCOUNTER 2022-04-06 00:17 | Day surgery (SDC) | payer BC, SELFPAY ==
[2022-03-24 11:02] VITALS: BMI 28.0
--- NOTE | 2022-04-03 11:57 | P.HP_ITS ---
History of Present Illness History of Present Illness Consent: Risks, benefits, and alternatives have been discussed and questions answered. Patient agrees to proceed with procedure. Chief complaint: neoplasm screening Narrative: Shadi Croft is a 51 year old male referred for colon cancer screening. Review of Systems Review of Systems: All systems reviewed & are unremarkable except as noted in HPI and below PMFSH Past Medical History Medical History Gallbladder colic Patient denies medical problems Surgical History Surgical History H/O inguinal hernia repair repaired as an H/O removal of cyst testicular cyst as a child History of tonsillectomy S/P cholecystectomy Family History Family History Father Malignant neoplasm of prostate Hypertension Heart failure Mother Lupus Breast cancer Father Malignant neoplasm of prostate Family history of diabetes mellitus in first degree relative Hypertension Mother Family history of malignant neoplasm of breast in first degree relative Family history of lupus erythematosus Father Family history of diabetes mellitus in first degree relative Other Family history of allergic disorder Social History Social History Smoking status: Never smoker Second hand tobacco smoke exposure: No Alcohol intake: current Drinks per week: 1 Alcohol use details: 2 drinks per month Substance use: never Substance use type: does not use Living arrangements: alone Occupation/Education: occupation Gender identity (if verbalized by the patient): Male Sexual Orientation (if Verbalized by the Patient): Straight or Heterosexual Spiritual care concerns: No Meds Home Medications and Allergies Home Medications Medication Instructions Recorded Confirmed Type aspirin 81 mg tablet 81 mg PO DAILY 04/30/20 03/24/22 History cetirizine 10 mg capsule (Zyrtec) 10 mg PO DAILY 04/30/20 03/24/22 History fluticasone propionate 50 2 spray intranasal DAILY 12/08/21 03/24/22 History mcg/actuation nasal spray,suspension multivitamin 1 tablet PO DAILY 12/08/21 03/24/22 History Allergies Allergy/AdvReac Type Severity Reaction Status Date / Time No Known Allergies Allergy Verified 04/06/22 07:21 Exam 2 Resp: Auscultation: clear to auscultation bilaterally Cardio: Rate: regular rate Rhythm: regular rhythm GI: GI Palp: Yes Soft to palpation and No Tenderness to palpation present (GI) Assessment and Plan Assessment and plan (1) Colon cancer screening: Code(s): Z12.11 - Encounter for screening for malignant neoplasm of colon Status: Acute Assessment and Plan: Colonoscopy with possible biopsy or polypectomy or cautery or injection of substances.
[2022-04-06 07:22] VITALS: BP 134/78; PULSE 68; RESP 18; TEMP 36.2; O2SAT 100
[2022-04-06] MEDS: LACTATED RINGERS 1,000 ML 150 ML IV CONT (07:30)
--- NOTE | 2022-04-06 08:26 | WPDANESEPPF ---
Anes - Initial Pre Proc Eval Procedure: Operation Date: 04/06/22 08:30 Proposed Procedures p Screening Colonoscopy - Tony Moran MD Date/Time: 04/06/22 08:26 Surgeon: Tony Moran MD Pre Op Diagnosis: neoplasm screening Patient Data Age: 51 Gender: M Height: 1.78 m Weight: 88.5 kg Last Vital Signs Temp 97.1 F L 04/06/22 07:22 Pulse 68 04/06/22 07:22 Resp 18 04/06/22 07:22 BP 134/78 04/06/22 07:22 Pulse Ox 100 04/06/22 07:22 O2 Del Method Room Air 04/06/22 07:22 Allergies Allergy/AdvReac Type Severity Reaction Status Date / Time No Known Allergies Allergy Verified 04/06/22 07:21 Home Medications Medication Instructions Recorded Confirmed Type aspirin 81 mg tablet 81 mg PO DAILY 04/30/20 03/24/22 History cetirizine 10 mg capsule (Zyrtec) 10 mg PO DAILY 04/30/20 03/24/22 History fluticasone propionate 50 2 spray intranasal DAILY 12/08/21 03/24/22 History mcg/actuation nasal spray,suspension multivitamin 1 tablet PO DAILY 12/08/21 03/24/22 History Patient hx anesthesia problems: none Family hx anesthesia problems: none Results Review: All pre-operative results and documents have been reviewed as part of the pre-operative evaluation. [facility] Past Medical History Medical History Gallbladder colic Patient denies medical problems Surgical History Surgical History H/O inguinal hernia repair repaired as an H/O removal of cyst testicular cyst as a child History of tonsillectomy S/P cholecystectomy Family History Family History Father Malignant neoplasm of prostate Hypertension Heart failure Mother Lupus Breast cancer Father Malignant neoplasm of prostate Family history of diabetes mellitus in first degree relative Hypertension Mother Family history of malignant neoplasm of breast in first degree relative Family history of lupus erythematosus Father Family history of diabetes mellitus in first degree relative Other Family history of allergic disorder Social History Social History Smoking status: Never smoker Second hand tobacco smoke exposure: No Alcohol intake: current Drinks per week: 1 Alcohol use details: 2 drinks per month Substance use: never Substance use type: does not use Living arrangements: alone Occupation/Education: occupation Gender identity (if verbalized by the patient): Male Sexual Orientation (if Verbalized by the Patient): Straight or Heterosexual Spiritual care concerns: No Anes - Eval Final PreProcedure Day of Procedure 04/06/22 08:26 Patient weight: normal Heart: regular rate and rhythm Lungs: clear to auscultation Airway: Mallampati scale class II Neurological: alert and oriented Last oral intake: >/= 8 hours ASA classification: II Emergent: no Anesthetic plan: proceed Anesthesia type and monitoring: general GIVS and standard monitoring Results Review: All pre-operative results and documents have been reviewed as part of the pre-operative evaluation. Informed Consent: The patient's anesthetic plan and its attendant risks and benefits were discussed with the patient/family/POA. Questions were solicited and answers provided to the satisfaction of the patient/family/POA.
[2022-04-06] MEDS: SIMETHICONE ORAL SUSPENSION 20 MG/0.3 ML 30 ML BOTTLE 0.6 ML IRRIGATION (08:43)
[2022-04-06 08:53] VITALS: BP 110/71; PULSE 88; RESP 21; O2SAT 99
[2022-04-06 09:03] VITALS: BP 110/65; PULSE 83; RESP 17; O2SAT 100
[2022-04-06 09:13] VITALS: BP 112/74; PULSE 65; RESP 20; O2SAT 99
== END 2022-04-06 09:15 | disposition home or self-care (01) ==
PROVIDERS: PCP Family Medicine; Visit Provider Internal Medicine Gastroenterology
PROC: 0DJD8ZZ Inspection of Lower Intestinal Tract, Via Natural or Artificial Opening Endoscopic (ICD-10-PCS; CPT 45378; principal; 2022-04-06 08:30)
DX: Z12.11 Encounter for screening for malignant neoplasm of colon (principal); K57.30 Diverticulosis of large intestine without perforation or abscess without bleeding; Z79.82 Long term (current) use of aspirin
CPT/HCPCS: 45378; J2001; J2704; J7120